=== PATIENT | male | born 1975 | race Hispanic/Latino ===

== ENCOUNTER 2018-10-23 13:41 | Emergency (ER) | payer OTHER ==
[2018-10-23] MEDS ORDERED: Lidocaine 2% MPF (5 ml) Inj ONE (15:31)
[2018-10-23] MEDS ORDERED: Lidocaine 2% Inj (20ml) INFIL ONE (15:40)
--- NOTE | 2018-10-23 15:40 | ED PDOC ---
Upper Extremity Pain/Injury History Per: Patient Additional Complaint(s): Pt is a 47 y/o mlae with of HLD presents to ED after a finger injury. 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 He reports minimal pain, states he just has throbbing. Denies numbness/tingling, LOC, or any other trauma during fall including head. PMD: none PMHX: HLD <Yasemin Zurita - Last Filed: 10/23/18 16:39> <Sara Virgen - Last Filed: 10/24/18 16:26> Time Seen by Provider: 10/23/18 14:36 Chief Complaint (Nursing): Upper Extremity Problem/Injury Supervising Attending Note - Supervising Attending Note The Documented history was done by the: Physician Dot Etcher, Attending Physician The documented physical exam was done by the: Physician Dot Etcher, Attending Physician The documented procedures were done by the: Physician Dot Etcher, Attending Physician - Attestation: I have personally seen and examined this patient.: Yes I have fully participated in the care of the patient.: Yes I have reviewed all pertinent clinical information: Yes <Sara Virgen - Last Filed: 10/24/18 16:26> Past Medical History Reviewed: Historical Data, Nursing Documentation, Vital Signs - Medical History PMH: Hyperlipidemia - Surgical History Surgical History: No Surg Hx - Family History Family History: States: No Known Family Hx - Living Arrangements Living Arrangements: With Family - Social History Current smoker - smoking cessation education provided: No <Yasemin Zurita - Last Filed: 10/23/18 16:39> Reviewed: Historical Data <Sara Virgen - Last Filed: 10/24/18 16:26> - Allergies Allergies/Adverse Reactions: Allergies Allergy/AdvReac Type Severity Reaction Status Date / Time No Known Allergies Allergy Verified 10/23/18 13:46 Review of Systems Constitutional: Negative for: Fever, Chills Cardiovascular: Negative for: Chest Pain, Palpitations Respiratory: Negative for: Cough, Shortness of Breath Gastrointestinal: Negative for: Nausea, Vomiting <Yasemin Zurita - Last Filed: 10/23/18 16:39> ROS Statement: Except As Marked, All Systems Reviewed And Found Negative <Sara Virgen - Last Filed: 10/24/18 16:26> Physical Exam - Physical Exam Appears: Positive for: No Acute Distress Head Exam: Positive for: ATRAUMATIC Cardiovascular/Chest: Positive for: Regular Rate, Rhythm Respiratory: Positive for: Normal Breath Sounds Extremity: Positive for: Other (Right 5th digit, laterally deviated, no other deformities noted. Mild swelling of PIP joint, no redness or warmth. No palpable tenderness, pain with attempted relocation. Good capillary refill of all digits. Distal pulses (radial and ulnar) normal.) <Yasemin Zurita - Last Filed: 10/23/18 16:39> - Reviewed Nursing Documentation Reviewed: Yes Vital Signs Reviewed: Yes <Sara Virgen - Last Filed: 10/24/18 16:26> Medical Decision Making Medical Decision Making: Likely dislocated. Will get 5th digit xray to rule out fx. <Yasemin Zurita - Last Filed: 10/23/18 16:39> Medical Decision Makin:55 Verbal consent obtained. No anesthetic used. Reduction of dislocation of right 5th finger performed. <Sara Virgen - Last Filed: 10/24/18 16:26> Procedures - Time-Out Type of Procedure: Reduction of dislocation of finger Site of Procedure: Right 5th Finger Correct Patient: Yes Correct Procedure: Yes Correct Site Marked: Yes Physician Name: Promise <Sara Virgen - Last Filed: 10/24/18 16:26> Disposition - Patient ED Disposition Is Patient to be Admitted: No Doctor Will See Patient In The: Office Counseled Patient/Family Regarding: Studies Performed, Diagnosis, Need For Followup - Disposition Disposition: Routine/Home Disposition Time: 16:39 <Yasemin Zurita - Last Filed: 10/23/18 16:39> - Pt Status Changed To: Hospital Disposition Of: Inpatient - Admit Certification Admit to Inpatient:: After my assessment, the patient will require hospitalization for at least two midnights. This is because of the severity of symptoms shown, intensity of services needed, and/or the medical risk in this patient being treated as an outpatient. <Sara Virgen - Last Filed: 10/24/18 16:26> - Clinical Impression Clinical Impression: Dislocation, finger closed, Injury of hand - Disposition Referrals: Charlie Munoz MD [Medical Doctor] - Condition: GOOD Additional Instructions: Avoid contact sports/activities until cleared by PMD. Ice for pain. Tylenol prn for pain F/U with Hand Surgeon, Dr. Osorio Instructions: Finger Dislocation
--- NOTE | 2018-10-23 15:56 | RAD ---
Date of service: 10/23/2018 PROCEDURE: Right small finger radiographs. HISTORY: right finger injury COMPARISON: None. TECHNIQUE: AP radiograph of the right hand, as well as spot oblique and lateral images of small finger were obtained. FINDINGS: RIGHT SMALL FINGER: Lateral dislocation/subluxation at the 5th proximal interphalangeal joint no evidence of fracture. No other fracture identified elsewhere. Remainder of the right hand (as seen on the AP view) grossly unremarkable. JOINTS: As above. Dislocation/subluxation at PIP 5. SOFT TISSUES: Normal. OTHER FINDINGS: None. IMPRESSION: Dislocation/subluxation at PIP 5. No evidence of fracture.
== END 2018-10-23 16:53 | disposition home or self-care (01) ==
LOC: H.ER 13:41
DX: S63.256A Unspecified dislocation of right little finger, initial encounter (principal); W19.XXXA Unspecified fall, initial encounter; Y99.0 Civilian activity done for income or pay; E78.5 Hyperlipidemia, unspecified